=== PATIENT | female | born 1955 | race African-American/Black ===

== ENCOUNTER 2021-03-05 08:38 | Emergency (ER) | payer OTHER ==
[~2021-03-05 08:38] MED LIST: ACCUPRIL20 MG PO; CYMBALTA 30MG C30 MG PO; FLEXERIL10 MG PO; INDERAL20 MG PO; LIPITOR 10MG TA10 MG PO; METFORMIN HCL500 MG PO; NAPROXEN500 MG PO; OSTERA TABLET1 EACH PO; SYNTHROID112 MCG PO
[2021-03-05] MEDS ORDERED: NORCO 5-325 TA1 EACH PO (10:46)
== END 2021-03-05 11:09 | disposition home or self-care (01) ==
LOC: FER 08:38
DX: M17.12 Unilateral primary osteoarthritis, left knee (principal); M51.17 Intervertebral disc disorders with radiculopathy, lumbosacral region; M48.07 Spinal stenosis, lumbosacral region; G95.89 Other specified diseases of spinal cord; E11.9 Type 2 diabetes mellitus without complications; I10 Essential (primary) hypertension; Z88.2 Allergy status to sulfonamides
CPT/HCPCS: 72131; 73564; J3301

== ENCOUNTER → 2021-04-19 | Day surgery (SDC) | payer OTHER ==
[~2021-04-19] VITALS: Ht 160 cm; Wt 99.3 kg
[~2021-04-19] MED LIST changes: -FLEXERIL10 MG PO; +FLEXERIL5 MG PO; +MOBIC7.5 MG PO; +NORCO 5-325 TA1 EACH PO; +VENLAFAXINE HCL75 MG PO
== END | disposition home or self-care (01) ==
LOC: FAS 06:57
DX: Z12.11 Encounter for screening for malignant neoplasm of colon (principal); K57.30 Diverticulosis of large intestine without perforation or abscess without bleeding; E11.9 Type 2 diabetes mellitus without complications; I10 Essential (primary) hypertension; E78.5 Hyperlipidemia, unspecified; M19.90 Unspecified osteoarthritis, unspecified site; E03.9 Hypothyroidism, unspecified; Z88.2 Allergy status to sulfonamides; Z80.0 Family history of malignant neoplasm of digestive organs; Z86.010 Personal history of colon polyps; Z20.822 Contact with and (suspected) exposure to COVID-19
CPT/HCPCS: J2250; J7120